=== PATIENT | female | born 1975 | race Caucasian/White ===

== ENCOUNTER 2025-01-23 14:15 | Emergency (ER) | payer MEDICAID, SELFPAY ==
[2025-01-23 14:51] VITALS: BP 141/83; PULSE 116; RESP 17; TEMP 37; O2SAT 97; BMI 32.5
--- NOTE | 2025-01-23 15:23 | PD.EDADULT ---
ED General RME/HPI General Chief complaint: Nausea/Vomiting/Diarrhea Stated complaint: Vomiting, dizzy CLARK since January 13 Time Seen by Provider: 01/23/25 15:07 Arrival date/time: 01/23/25 14:15 RME / HPI RME / HPI narrative: 49-year-old female presents to the ED with complaint of headache, dizziness, nausea and vomiting that has been present since January 13. She was seen by her primary care physician and told if she continues to have pain to come to the ED or. Headache is a pressure type headache all over the top of her head. She denies any previous occurrence of this type of headache. She denies any visual or hearing changes associated. She denies any numbness, tingling or weakness to her hands or feet. She denies any recent illness with fever, chills, cough, upper respiratory complaints, sinus pressure or drainage. She denies any abdominal pain, diarrhea, dysuria or frequency. Related Data Home Medications ?Medication ?Instructions ?Recorded ?Confirmed loratadine 10 mg tablet 10 mg PO QDAY PRN Allergy Symptoms 01/31/18 08/26/23 atorvastatin 20 mg tablet 20 mg PO HS 07/31/23 08/25/23 docusate sodium 100 mg capsule 100 mg PO DAILY PRN Constipation 07/31/23 08/26/23 losartan 100 mg tablet 100 mg PO DAILY 07/31/23 08/26/23 metformin 500 mg tablet 500 mg PO BID 07/31/23 08/26/23 semaglutide 1 mg/dose (4 mg/3 mL) 1 mg subcut QWEEK 07/31/23 08/26/23 subcutaneous pen injector (Ozempic) ferrous sulfate 325 mg (65 mg 325 mg PO QDAY 08/25/23 08/26/23 iron) tablet norethindrone acetate 5 mg tablet 5 mg PO DAILY 08/25/23 08/26/23 Previous Rx's ?Medication ?Instructions ?Recorded acetaminophen 500 mg capsule 500 mg PO Q6H PRN fever or pain 07/31/23 #30 caps acetaminophen 300 mg-codeine 15 mg 1 tab PO Q12H PRN pain #14 tabs 08/27/23 tablet acetaminophen 650 mg 650 mg PO Q12H PRN fever or pain 08/27/23 tablet,extended release #14 tabs docusate sodium 100 mg capsule 100 mg PO QDAY #30 caps 08/27/23 (Colace) doxycycline monohydrate 100 mg 100 mg PO BID #30 caps 08/27/23 capsule ibuprofen 800 mg tablet 800 mg PO Q8H PRN pain #20 tabs 08/27/23 metronidazole 500 mg tablet 500 mg PO Q12H #30 tabs 08/27/23 amoxicillin 875 mg-potassium 1 tab PO BID 10 days #20 tabs 01/23/25 clavulanate 125 mg tablet meloxicam 15 mg tablet 15 mg PO QDAY #10 tabs 01/23/25 Allergies Allergy/AdvReac Type Severity Reaction Status Date / Time cephalexin Allergy Severe DIFF Verified 01/23/25 14:19 BREATHING paroxetine Allergy Severe HIVES Verified 01/23/25 14:19 Review of Systems Review of Systems Systems Reviewed: All systems reviewed, normal except as documented Past Medical History Past Medical History NEUROLOGIC: Negative Neurological Disorders or Seizures CARDIAC: Positive Cardiac Disorders, Hypercholesterolemia and Hypertension; Negative Congestive Heart Failure RESPIRATORY: Positive Asthma (yrs ago); Negative Chronic Obstructive Pulmonary Disease (COPD) GASTROINTESTINAL: Positive Gastrointestinal Disorders and Obesity GENITOURINARY: Negative Genitourinary Disorders or Renal Disease REPRODUCTIVE: Positive Previous Pregnancies (x4) MUSCULOSKELETAL: Negative Musculoskeletal Disorders ENDOCRINE: Positive Endocrine Disorders and Diabetes Mellitus Type 2; Negative Diabetes Mellitus Type 1 HEMATOLOGIC: Positive Blood Disorders and Anemia OTHER HISTORY: Positive Hospitalization (faloppian tube torsion) and Chicken Pox; Negative Autoimmune Disease, Shingles, Blood Transfusions, Blood Transfusion Reaction, Anesthesia Reactions or Cancer Family History FAMILY HISTORY: Positive Family Cardiac Disorders, Family Cancer and Family Surgery; Negative Family Psychiatric Problems, Family Respiratory Disorders, Family Gastrointestinal Problems or Family Anesthesia Reaction Surgical History SURGICAL: Positive Lumpectomy (Left breast biopsy) Social History SMOKING STATUS: Never smoker ED Exam Narrative Physical exam: Alert and oriented, very pleasant 49-year-old female, mild acute pain distress. Pupils are PERRL, EOMs intact horizontal 9's diagnosis noted. No vertical nystagmus. Cranial nerves II through XII grossly intact. 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 DTRs intact. Lungs are clear, regular rate and rhythm. No CVA tenderness, abdomen is soft and nontender. Course Course Course Narrative: Initial vital signs blood pressure 141/83, pulse 116, respirations 17, temperature 98.6, O2 sat 97% on room air. CBC reveals an elevated white count of 16.2, normal H&H and minimally elevated platelet level of 444. ANC is elevated 11.4. ESR is elevated at 23. Coags are normal. CMP reveals normal electrolytes, normal BUN and creatinine and normal LFTs. Urinalysis reveals clear yellow urine with a specific gravity of 1.025 with negative glucose, trace ketones, negative blood, negative nitrites, negative leukocyte esterase, 3 RBCs, <1 WBC and no bacteria. Urine hCG is negative. Head CT reveals: Negative for acute hemorrhage, mass effect or midline shift. Chronic sphenoid sinusitis. Patient was given Toradol 30 mg IM as well as Zofran 4 mg p.o. Patient is feeling mildly improved. She will be discharged home in stable and improved condition with a prescription for Augmentin for sphenoid sinusitis. She was advised to follow-up with her primary care physician for a referral to a neurologist for further workup and evaluation, and possible MRI. She was encouraged to return to the ED for any new or worsening symptoms. Orders Category Date Time Status CT head/brain wo con Stat Exams 01/23/25 15:32 Completed CBC Stat Lab 01/23/25 15:40 Completed CMP [Comprehensive Metabolic Panel] Stat Lab 01/23/25 15:40 Completed ESR [Sed Rate (ESR)] Stat Lab 01/23/25 15:40 Completed HCG Qualitative,Urine Stat Lab 01/23/25 16:58 Completed PT [Prothrombin Time with INR] Stat Lab 01/23/25 15:40 Completed PTT [Partial Thromboplastin Time] Stat Lab 01/23/25 15:40 Completed Urinalysis, C/S if Indicated Stat Lab 01/23/25 16:58 Completed Ketorolac Inj [Toradol Inj] Med 01/23/25 15:32 Discontinued 30 mg IM X1 ONE Ondansetron Odt [Zofran Odt] Med 01/23/25 15:32 Discontinued 4 mg PO X1 ONE Vital Signs Vital signs: Vital Signs Temperature 98.6 F 01/23/25 14:51 Pulse Rate 116 H 01/23/25 14:51 Respiratory Rate 17 01/23/25 14:51 Blood Pressure 141/83 H 01/23/25 14:51 Pulse Oximetry (%) 97 01/23/25 14:51 Oxygen Delivery Method Room Air 01/23/25 14:51 Discharge Plan Plan Patient Disposition: HOME (Self Care) Discharge Disposition comment: Stable Prescriptions/Referrals Prescriptions/Med Rec: New amoxicillin-pot clavulanate 875-125 mg tablet 1 tab PO BID 10 Days Qty: 20 0RF meloxicam 15 mg tablet 15 mg PO QDAY Qty: 10 0RF No Action loratadine 10 mg Tablet 10 mg PO QDAY PRN (Reason: Allergy Symptoms) metformin 500 mg tablet 500 mg PO BID Patient Comments: TAKE 1 TABLET BY MOUTH TWICE A DAY WITH MEALS atorvastatin 20 mg tablet 20 mg PO HS Patient Comments: TAKE 1 TABLET BY MOUTH EVERY DAY IN THE EVENING docusate sodium 100 mg capsule 100 mg PO DAILY PRN (Reason: Constipation) Patient Comments: TAKE 1 CAPSULE BY MOUTH EVERY DAY NEEDED losartan 100 mg tablet 100 mg PO DAILY Patient Comments: TAKE 1 TABLET BY MOUTH EVERY DAY FOR 30 DAYS Ozempic 1 mg/dose (4 mg/3 mL) pen injector 1 mg SUBCUT QWEEK Patient Comments: INJECT 1MG SUBCUTANEOUSLY ONCE A WEEK acetaminophen 500 mg capsule 500 mg PO Q6H PRN (Reason: fever or pain) Qty: 30 0RF ferrous sulfate 325 mg (65 mg iron) Tablet 325 mg PO QDAY norethindrone acetate 5 mg tablet 5 mg PO DAILY Patient Comments: TAKE 1 TABLET BY MOUTH EVERY DAY acetaminophen 650 mg tablet extended release 650 mg PO Q12H PRN (Reason: fever or pain) Qty: 14 0RF ibuprofen 800 mg tablet 800 mg PO Q8H PRN (Reason: pain) Qty: 20 0RF acetaminophen-codeine 300-15 mg tablet 1 tab PO Q12H PRN (Reason: pain) Qty: 14 0RF docusate sodium [Colace] 100 mg capsule 100 mg PO QDAY Qty: 30 0RF metronidazole 500 mg tablet 500 mg PO Q12H Qty: 30 0RF doxycycline monohydrate 100 mg capsule 100 mg PO BID Qty: 30 0RF Referrals: Pablo Cheng PA-C [Primary Care Provider] - In 1 week Problem List Clinical Impression: Sinusitis, Headache Patient/Caregiver Discharge Instructions Education Materials: ED Sinus Headache, ED Sinusitis (Antibiotic Treatment) Additional Instructions: Take the antibiotics as prescribed and complete the course even though you may be feeling better. Follow-up with your primary care physician for referral to a neurologist for further workup and evaluation. You may need an MRI for additional evaluation. Return to the ED for any new or worsening symptoms. Print Language: Venezuelan Stand Alone Forms: Rekha Award Info., Patient Portal Info Letter JADYN/MAN Supervising Physician YOHANA Supervising Physician: Dr. Antolin NATARAJAN Clinical Information Provided by patient Medical Records Reviewed None Meds/Rx Considered, not Ordered None Describe details: N/A Labs/Rad/Tests considered, not Ordered None Describe details: N/A Chronic Illness/Social Conditions which may negatively complicate care or outcome(s)-explain: None or not applicable EKG EKG not done EKG Interpretation narrative: N/A Lab Interpretation Labs: interpreted by ms Lab(s) interpretation(s): As noted above Imaging Imaging interpretation: see narrative above Provider imaging interpretation(s): As noted above Radiology reports / interpretation(s): As noted above Medication Administration(s) Medication Administration History Discontinued Medications Ketorolac Tromethamine (Ketorolac Inj 60 Mg/2 Ml Vial) 30 mg IM X1 ONE Stop: 01/23/25 15:33 Last Admin: 01/23/25 15:56 Dose: 30 mg Documented By: RACHELE Ondansetron HCl (Ondansetron Odt 4 Mg Tabrap) 4 mg PO X1 ONE; Protocol Stop: 01/23/25 15:33 Last Admin: 01/23/25 15:55 Dose: 4 mg Documented By: RACHELE As noted above Diagnosis Differential diagnosis: Hemorrhagic stroke, migraine variant, simple headache, sinusitis Differential dx and/or dx ruled out: Hemorrhagic stroke Most likely dx, and/or detailed dx discussion: Sphenoid sinusitis with headache Dispositon Disposition: Discharge Home Disposition comments: Patient is stable for discharge
--- NOTE | 2025-01-23 15:32 | XR_ITS ---
Examination: CT brain head without contrast. 2-D sagittal coronal reconstructions Date and time of exam:January 23, 2025 1748 hours INDICATIONS: Onset headaches today COMPARISON: October 04, 2011 CTDI: vol (mGy):54 DLP: (mGycm):1056 Technique: Multiple CT axial sections of the brain have been obtained, 5 mm slice thickness. Contrast has not been administered. 2-D sagittal, coronal reconstructions have been obtained Low dose protocols were performed. One or more of the following dose reduction techniques were used; automated exposure control, adjustment of the mA and/or KV according to patient size, use of iterative reconstruction technique. Findings: No significant ventricular enlargement. Intra-axial or extra-axial hemorrhage density is not seen. No mass effect or midline shift Basal cisterns are not remarkable. Fourth ventricle is midline. Cranial vault intact. Impression: Negative for acute hemorrhage, mass effect or midline shift Chronic sphenoid sinusitis
[2025-01-23] MEDS: ONDANSETRON ODT 4 MG TABRAP PO (15:55)
[2025-01-23] MEDS: KETOROLAC INJ 60 MG/2 ML VIAL 30 MG IM (15:56)
[2025-01-23 15:59] LABS: Basophils # (Auto) 0.1 Thou/mm3 (0.0-0.2); Basophils % (Auto) 1 % (0-2.5); Eosinophils # (Auto) 0.5 Thou/mm3 (0.0-0.5); Eosinophils % (Auto) 3 % (0-10); Hematocrit 42.3 % (36.0-46.0); Hemoglobin 14.6 g/dL (12.0-16.0); Immature Granulocytes Auto 0.08 Thou/mm3 (0.00-0.00); Lymphocytes # (Auto) 3.4 Thou/mm3 (1.0-4.8); Lymphocytes % (Auto) 21 % (10-50); Mean Corpuscular HGB Conc 34.5 g/dl (31.0-37.0); Mean Corpuscular Hemoglobin 27.3 pg (25.0-35.0); Mean Corpuscular Volume 79 fL (80-100); Monocytes # (Auto) 0.8 Thou/mm3 (0.0-0.8); Monocytes % (Auto) 5 % (0-12); Neutrophils # (Auto) 11.4 Thou/mm3 (1.8-7.7); Neutrophils % (Auto) 70 % (37-80); Nucleated Red Blood Cell # 0.00 Thou/mm3 (0.00-0.00); Nucleated Red Blood Cell % 0 /100 WBC (0); Platelet Count 444 Thou/mm3 (140-440); RDW Standard Deviation 39.1 fL (36.4-46.3); Red Blood Count 5.35 Miln/mm3 (4.00-5.20); White Blood Count 16.2 Thou/mm3 (3.6-11.0)
[2025-01-23 16:06] LABS: Alanine Aminotransferase 21 U/L (10-49); Albumin, Serum 4.8 gm/dL (3.5-5.0); Albumin/Globulin Ratio 1.5 (1.2-2.2); Alkaline Phosphatase 90 U/L (46-116); Anion Gap 11 (7-16); Aspartate Amino Transferase 18 U/L (0-34); BUN/Creatinine Ratio 10 Ratio (12-20); Bilirubin,Total 0.6 mg/dL (0.3-1.2); Blood Urea Nitrogen 8 mg/dL (9-23); Calcium 9.4 mg/dL (8.3-10.6); Calcium (Corrected) 9.4 mg/dL (8.5-10.1); Carbon Dioxide 23.2 mMol/L (20.0-31.0); Chloride 106 mMol/L (98-107); Creatinine (Component) 0.8 mg/dL (0.6-1.3); Estimated Creatinine Clearance 103.7 mL/min (>60); Globulin 3.1 gm/dL (2.3-3.5); Glucose 101 mg/dL (74-106); INR 1.0 (0.9-1.3); Osmolality,Calculated 277 (275-295); Partial Thromboplastin Time 24.9 Seconds (22.0-36.0); Potassium 4.0 mMol/L (3.4-5.1); Prothrombin Time 10.9 Seconds (9.0-12.2); Sodium 140 mMol/L (136-145); Total Protein 7.9 gm/dL (5.7-8.2); eGFR > 60 See Note
[2025-01-23 16:51] LABS: Sed Rate (ESR) 23 mm/hr (0-20)
[2025-01-23 17:10] LABS: Collection Type, Urine Clean Catch
[2025-01-23 17:36] LABS: HCG Qualitative,Urine Negative
[2025-01-23 17:39] LABS: Bilirubin,Urine Negative (Negative); Blood,Urine Negative (Negative); Clarity,Urine Clear (Clear/Hazy); Color,Urine Yellow (Lt Yel-Yel); Culture Indicated,Urine Not Indicated; Glucose, Urine Negative (Negative); Hyaline Casts,Urine < 1 /hpf (0-1); Ketones,Urine Trace (Negative); Leukocyte Esterase,Urine Negative (Negative); Nitrite,Urine Negative (Negative); PH,Urine 5.5 (5.0-7.0); Protein,Urine Trace (Neg - Trace); RBC,Urine 3 /hpf (0-3); Specific Gravity,Urine 1.025 (1.001-1.035); Squamous Epithelial Cell,Urine 2 /hpf (0-5); Urobilinogen,Urine Negative mg/dL (0.0-1.0); WBC,Urine < 1 /hpf (0-5)
[2025-01-23 19:02] VITALS: BP 131/85; PULSE 83; RESP 18; TEMP 37; O2SAT 99
== END 2025-01-23 19:31 | disposition home or self-care (01) ==
PROVIDERS: Physician Assistant; Emergency Provider Emergency Medicine; PCP Family Medicine
DX: J32.3 Chronic sphenoidal sinusitis (principal); R51.9 Headache, unspecified; R11.2 Nausea with vomiting, unspecified
CPT/HCPCS: 36415; 70450; 80053; 81001; 81025; 85025; 85610; 85652; 85730; 96372; 99284; J1885; Q0162

== ENCOUNTER 2025-02-14 06:50 | Day surgery (SDC) | payer MEDICAID, SELFPAY ==
[2025-02-13 11:01] VITALS: BMI 32.6
[2025-02-14] VITALS (10 sets, daily range): BP systolic 123–170; BP diastolic 76–108; PULSE 73–97; RESP 12–20; TEMP 36.7–36.9; O2SAT 96–100; BMI 33.0
[2025-02-14] MEDS: SODIUM CHLORIDE 0.9% 500 ML 500 ML 20 ML IV (07:49)
[2025-02-14] MEDS: fentaNYL CIT INJ 50 mCg/ML AMP 2ML (ASD USE ONLY) IVP (07:53)
[2025-02-14] MEDS: MIDAZOLAM INJ 1 MG/ML VIAL 2 ML (ASD USE ONLY) 2 MG IVP (07:53)
--- NOTE | 2025-02-14 08:06 | SUR.PHASEII ---
0806 patient is sleepy and arousable, breahting unlabored, s/p colonoscopy under IV sedation, report received from Evelyn MANDUJANO
--- NOTE | 2025-02-14 08:26 | SUR.PHASEII ---
0874 patient is sleepy and arousable, breahting unlabored, s/p colonoscopy under IV sedation, report received from Evelyn MANDUJANO
--- NOTE | 2025-02-14 09:06 | SUR.PHASEII ---
0859 patient is awake, alert, breathing unlabored, meets discharge criteria, discharge instructions given to patient and Alan, patient discharged home in wheelchair with all belongings.
== END 2025-02-14 08:59 | disposition home or self-care (01) ==
PROVIDERS: PCP Family Medicine; Referring Provider Surgery; Visit Provider Surgery
PROC: 0DBE8ZX Excision of Large Intestine, Via Natural or Artificial Opening Endoscopic, Diagnostic (ICD-10-PCS; CPT 45380; principal; 2025-02-14 08:00)
DX: K62.5 Hemorrhage of anus and rectum (principal); K64.1 Second degree hemorrhoids
CPT/HCPCS: 45378; 81025; J1200; J2250; J3010; J7999

== ENCOUNTER → 2025-05-26 | Outpatient (CLI) | payer MEDICAID, SELFPAY ==
--- NOTE | 2025-05-26 11:30 | XR_ITS ---
Examination: Screening digital mammography, bilateral Computer aided detection 3-D breast Tomosynthesis, bilateral Date and time of exam: May 26, 2025, 11:11 a.m. Compared to mammograms dating to June 19, 2021 Indication: Screening Technique: Nonmagnified MLO, CC views of the breasts to been obtained, reconstructed from 3-D Tomosynthesis images. R2 computer aided detection program utilized for evaluation of suspicious masses and/or abnormal calcifications. 3-D Tomosynthesis images obtained. Findings: The breasts are heterogeneously dense, which may obscure small masses Breast biopsy marker upper outer left breast Second breast biopsy marker outer left breast posterior depth Stable nodule outer left breast on the cc view Impression: BI-RADS Category 0: Incomplete: Need additional imaging evaluation Recommend repeat bilateral breast sonography to compare with the December 18, 2023 exam.
== END | disposition home or self-care (01) ==
LOC: CDIM 11:05
PROVIDERS: Referring Provider Family Medicine; Visit Provider Family Medicine
DX: Z12.31 Encounter for screening mammogram for malignant neoplasm of breast (principal); R92.8 Other abnormal and inconclusive findings on diagnostic imaging of breast
CPT/HCPCS: 77063; 77067